=== PATIENT | female | born 1990 | race Caucasian/White ===

== ENCOUNTER → 2018-12-20 | Outpatient (CLI) | payer MEDICARE ==
--- NOTE | 2018-12-20 11:18 | RAD ---
EXAM DESCRIPTION: Cervical Spine, 2-3 Views CLINICAL HISTORY: BACK PAIN COMPARISON: None Available. TECHNIQUE: AP/lateral/ open-mouth odontoid FINDINGS: Anatomic alignment of cervical vertebrae is seen on lateral view with visualization of C1-C5. Swimmer's view or oblique views may be helpful to see the lower C-spine and upper T-spine. No fracture or subluxation. No prevertebral soft tissue swelling. Normal craniocervical alignment. There is preservation of the spinal laminar line. No spinous process avulsion. Odontoid base and lateral margins of C1 and C2 are not well seen due to overlapping bony structures. AP view shows normal spinous process alignment with normal alignment of the lateral masses. Lung apices are clear. IMPRESSION: No identified fracture or posttraumatic subluxation. See above. Electronically signed by: Amado Norman MD 12/20/2018 11:17 AM CDT
--- NOTE | 2018-12-20 11:19 | RAD ---
EXAM DESCRIPTION: Lumbar Spine 3 Views CLINICAL HISTORY: BACK PAIN COMPARISON: None Available. TECHNIQUE: AP/lateral/coned-down lateral FINDINGS: There is mild rightward curvature of the lower thoracic and lumbar spine. Frontal view shows intact pedicles and transverse processes. Sacrum appears intact with normal SI joints. Lateral view shows no vertebral compressions. Disc height is well-preserved. Normal bony mineralization. No destructive lesion. IMPRESSION: No diagnostic abnormality. Electronically signed by: Amado Norman MD 12/20/2018 11:18 AM CDT
--- NOTE | 2018-12-20 11:22 | RAD ---
EXAM DESCRIPTION: Thoracic Spine,AP Lateral CLINICAL HISTORY: BACK PAIN COMPARISON: None Available. TECHNIQUE: AP/lateral/swimmer's lateral of the thoracic spine FINDINGS: There is mild leftward curvature of the mid to lower thoracic spine measuring 9 degrees from upper T7 through lower L1. Normal appearance of the pedicles. Posterior medial ribs appear intact. No abnormal spinal curvature is present. Vertebral compressions: None Intervertebral disc spaces: Mild degenerative narrowing of mid to lower T-spine disc spaces with mild anterior spurring at multiple levels. Swimmer's lateral view shows normal alignment of lower cervical and upper thoracic vertebrae. IMPRESSION: Degenerative changes as described. Electronically signed by: Amado Norman MD 12/20/2018 11:20 AM CDT
== END ==
LOC: RAD 09:46
PROVIDERS: ATTEND Nurse Practitioner Family
DX: M47.894 Other spondylosis, thoracic region (principal)